=== PATIENT | male | born 1950 ===

== ENCOUNTER 2019-05-24 08:15 | Day surgery (SDC) | payer MEDICARE | END 2019-05-24 22:44 | disposition home or self-care (01) | LOC: RAD 08:15 → ORSCMMR 08:15 → RAD 09:00 | DX: M84.852 Other disorders of continuity of bone, left pelvic region and thigh (principal); G57.02 Lesion of sciatic nerve, left lower limb | CPT/HCPCS: 20610; 73722; 77002; A9577; Q9967 ==

== ENCOUNTER → 2020-08-23 | Outpatient (CLI) | payer MEDICARE | LOC: LAB 13:16 → LAB SHORT 13:16 | PROVIDERS: Physician Assistant Medical | DX: G89.4 Chronic pain syndrome (principal); Z79.899 Other long term (current) drug therapy | CPT/HCPCS: G0480 ==